=== PATIENT | male | born 1985 | race Hispanic/Latino ===

== ENCOUNTER → 2021-07-30 | Outpatient (CLI) | payer BC | LOC: SLEEPLAB 17:30 | PROVIDERS: ATTEND Physician Assistant | DX: G47.10 Hypersomnia, unspecified (principal); R53.83 Other fatigue; E66.9 Obesity, unspecified; I10 Essential (primary) hypertension; G47.33 Obstructive sleep apnea (adult) (pediatric) | CPT/HCPCS: 95806 ==